=== PATIENT | male | born 1965 | race Caucasian/White ===

== ENCOUNTER 2022-12-06 17:34 | Inpatient (IN) | payer OTHER ==
[~2022-12-06] VITALS: Ht 182.9 cm; Wt 81.6 kg
[2022-12-07] VITALS (8 sets, daily range): BP systolic 119–144; BP diastolic 78–95; TEMP 97.7–98.6; O2SAT 98–100
[2022-12-07] MEDS ORDERED: NITROGLYCERIN 0.4 MG/TAB BOTTLE SL PRN (01:00)
[2022-12-07] MEDS ORDERED: hydrALAZINE HCL IV 20 MG VIAL IV PRN (01:00)
[2022-12-07] MEDS ORDERED: ACETAMINOPHEN 325 MG TABLET PO PRN (01:00)
[2022-12-07] MEDS ORDERED: MORPHINE SULFATE INJ 4 MG/ML DISP.SYRIN IV PRN (01:00)
[2022-12-07] MEDS ORDERED: HYDROCODONE/APAP 5/325MG TABLET PO PRN (01:00)
[2022-12-07 01:47] LABS: BASOPHILS # (AUTO) 0.1 K/uL (0.0-0.2); BASOPHILS % (AUTO) 0.9 % (0.0-2.0); EOSINOPHILS # (AUTO) 0.2 K/uL (0.0-0.7); EOSINOPHILS % (AUTO) 2.3 % (0.0-6.0); HEMATOCRIT 43 % (39-51); HEMOGLOBIN 14.5 g/dL (13.5-17.5); LYMPHOCYTES # (AUTO) 2.5 K/uL (0.8-4.8); LYMPHOCYTES % (AUTO) 35.9 % (20.0-44.0); MEAN CORPUSCULAR HEMOGLOBIN 29 PG (26.0-33.0); MEAN CORPUSCULAR HGB CONC 34 g/dl (31.0-36.0); MEAN CORPUSCULAR VOLUME 87 fL (80-96); MONOCYTES # (AUTO) 0.6 K/uL (0.1-1.30); MONOCYTES % (AUTO) 8.2 % (2.0-12.0); NEUTROPHILS # (AUTO) 3.7 K/uL (1.8-8.9); NEUTROPHILS % (AUTO) 52.7 % (43.0-81.0); PLATELET COUNT (AUTO) 212 K/uL (150-450); RED BLOOD CELL COUNT(AUTO) 4.97 MIL/uL (4.5-6.0); RED CELL DISTRIBUTION WIDTH 13.2 % (11.5-15.0)
[2022-12-07 01:56] LABS: CALCIUM, SERUM 8.9 mg/dL (8.5-10.1); CARBON DIOXIDE 26 mmol/L (21-32); CHLORIDE 103 mmol/L (98-107); CREATININE 0.8 mg/dL (0.6-1.3); GLUCOSE 166 mg/dL (74-106); POTASSIUM 3.3 mmol/L (3.5-5.1); SODIUM SERUM 136 mmol/L (136-145); UREA NITROGEN, BLOOD 11 mg/dL (7-18)
[2022-12-07 01:57] LABS: ERYTHROCYTE SEDIMENTATION RATE 2 MM/HR (0-20)
[2022-12-07 02:02] LABS: ALANINE AMINOTRANSFERASE 30 U/L (12-78); ALBUMIN 3.4 g/dL (3.4-5.0); ALKALINE PHOSPHATASE 92 U/L (46-116); ASPARTATE AMINOTRANSFERASE 20 U/L (15-37); BILIRUBIN,TOTAL 0.8 mg/dL (0.2-1.0); TOTAL PROTEIN, SERUM 7.1 g/dL (6.4-8.2)
[2022-12-07 02:09] LABS: CHOLESTEROL 149 mg/dL (<200); HDL CHOLESTEROL 54 mg/dL (40-60); LDL 80 mg/dL (0-99); THYROID STIMULATING HORMONE 2.918 uIU/mL (0.358-3.74); TRIGLYCERIDES 130 mg/dL (30-150)
[2022-12-07] MEDS: ENOXAPARIN SODIUM 40 MG/0.4 ML DISP.SYRIN SQ SCH ×2 (02:46→21:26)
[2022-12-07 02:55] LABS: INR 1.07 (0.91-1.10); PARTIAL THROMBOPLASTIN TIME 31.3 SEC (24.3-34.3); PROTHROMBIN TIME 11.3 SECS (9.2-11.1)
[2022-12-07] MEDS ORDERED: CARV12.52 PO (08:05)
[2022-12-07] MEDS ORDERED: ATOR80TA PO (08:05)
[2022-12-07] MEDS ORDERED: SPIR25TA PO (08:05)
[2022-12-07] MEDS ORDERED: ASPI-1420 PO (08:05)
[2022-12-07] MEDS ORDERED: IRBE1TAB43 PO (08:05)
[2022-12-07] MEDS: ASPIRIN 81 MG TAB.CHEW PO SCH (08:34)
[2022-12-07] MEDS: SPIRONOLACTONE 25 MG TABLET PO SCH (08:34)
[2022-12-07] MEDS: CARVEDILOL 6.25 MG TABLET PO SCH ×2 (08:38→18:16)
[2022-12-07] MEDS ORDERED: POTASSIUM CHLORIDE 20 MEQ TAB.PRT.SR PO ONE (11:00)
[2022-12-07] MEDS: CLOPIDOGREL BISULFATE 75 MG TABLET PO SCH (11:29)
[2022-12-07] MEDS: ATORVASTATIN 40 MG TABLET PO SCH ×2 (21:40→21:51)
[2022-12-08] VITALS: BP 119/78; TEMP 98; O2SAT 98
[2022-12-08 04:00] VITALS: BP 121/92; TEMP 98.1; O2SAT 98
[2022-12-08 07:20] LABS: INR 1.03 (0.91-1.10); PROTHROMBIN TIME 10.9 SECS (9.2-11.1)
[2022-12-08 07:21] LABS: CALCIUM, SERUM 8.4 mg/dL (8.5-10.1); CREATININE 0.7 mg/dL (0.6-1.3); MAGNESIUM 1.8 mg/dL (1.8-2.4); PHOSPHORUS 3.5 mg/dL (2.5-4.9); POTASSIUM 3.9 mmol/L (3.5-5.1)
[2022-12-08 07:32] LABS: BASOPHILS # (AUTO) 0.1 K/uL (0.0-0.2); EOSINOPHILS # (AUTO) 0.2 K/uL (0.0-0.7); EOSINOPHILS % (AUTO) 2.6 % (0.0-6.0); HEMATOCRIT 44 % (39-51); HEMOGLOBIN 14.5 g/dL (13.5-17.5); LYMPHOCYTES # (AUTO) 2.5 K/uL (0.8-4.8); LYMPHOCYTES % (AUTO) 37.4 % (20.0-44.0); MEAN CORPUSCULAR HEMOGLOBIN 29 PG (26.0-33.0); MEAN CORPUSCULAR HGB CONC 33 g/dl (31.0-36.0); MEAN CORPUSCULAR VOLUME 88 fL (80-96); MONOCYTES # (AUTO) 0.6 K/uL (0.1-1.30); MONOCYTES % (AUTO) 8.3 % (2.0-12.0); NEUTROPHILS # (AUTO) 3.4 K/uL (1.8-8.9); NEUTROPHILS % (AUTO) 50.7 % (43.0-81.0); PLATELET COUNT (AUTO) 203 K/uL (150-450); RED BLOOD CELL COUNT(AUTO) 4.99 MIL/uL (4.5-6.0); RED CELL DISTRIBUTION WIDTH 13.3 % (11.5-15.0); WHITE BLOOD COUNT (AUTO) 6.8 K/uL (4.3-11.0)
[2022-12-08 08:00] VITALS: BP 131/87; TEMP 98.5; O2SAT 98
[2022-12-08] MEDS: CLOPIDOGREL BISULFATE 75 MG TABLET PO SCH (08:48)
[2022-12-08] MEDS: ASPIRIN 81 MG TAB.CHEW PO SCH (08:48)
[2022-12-08] MEDS: SPIRONOLACTONE 25 MG TABLET PO SCH (08:49)
[2022-12-08] MEDS: CARVEDILOL 6.25 MG TABLET PO SCH (08:49)
[2022-12-08] MEDS ORDERED: CLOP75TA15 PO ×2 (10:04→10:36)
[2022-12-08] MEDS ORDERED: RIVA10TA PO ×2 (10:31→10:59)
[2022-12-08] MEDS ORDERED: ASPI-1420 PO (10:36)
[2022-12-08 12:00] VITALS: BP 127/85; TEMP 98.7; O2SAT 98
== END 2022-12-08 15:36 | disposition home or self-care (01) | DRG 45 ==
LOC: TELE-TD 23:51 → TELE1 12-07 03:46
PROVIDERS: ADMIT Nurse Practitioner Acute Care; ATTEND Nurse Practitioner Acute Care
DX: I63.9 Cerebral infarction, unspecified (principal); R47.01 Aphasia; E78.00 Pure hypercholesterolemia, unspecified; I10 Essential (primary) hypertension; R29.700 NIHSS score 0; R29.810 Facial weakness; I25.10 Atherosclerotic heart disease of native coronary artery without angina pectoris; Z95.5 Presence of coronary angioplasty implant and graft; R47.81 Slurred speech; Z79.82 Long term (current) use of aspirin; Z79.899 Other long term (current) drug therapy; I25.2 Old myocardial infarction; Z91.041 Radiographic dye allergy status; R20.2 Paresthesia of skin; Z79.01 Long term (current) use of anticoagulants
CPT/HCPCS: 36415; 70544-TC; 70547-TC; 70551-TC; 80048-TC; 80053-TC; 80061-TC; 83735-TC; 84100-TC; 84443-TC; 84484-TC; 85025-TC; 85652-TC; 85730-TC; 93307-TC; 97110-TC; 97116-TC; 97530-TC; G0378; J1650